=== PATIENT | female | born 1960 | race Asian ===

== ENCOUNTER → 2016-08-06 | Outpatient (CLI) | payer OTHER | LOC: FIMAGING 14:52 | DX: Z12.31 Encounter for screening mammogram for malignant neoplasm of breast (principal) | CPT/HCPCS: G0202 ==

== ENCOUNTER → 2016-10-14 | Outpatient (CLI) | payer OTHER | LOC: FIMAGING 13:00 | PROVIDERS: ATTEND Family Medicine | DX: Z12.39 Encounter for other screening for malignant neoplasm of breast (principal); R92.2 Inconclusive mammogram | CPT/HCPCS: G0206 ==

== ENCOUNTER → 2016-10-20 | Outpatient (CLI) | payer OTHER | LOC: FIMAGING 14:55 | PROVIDERS: ATTEND Nurse Practitioner Family | DX: M25.561 Pain in right knee (principal); M25.461 Effusion, right knee ==

== ENCOUNTER → 2017-05-08 | Outpatient (CLI) | payer OTHER | LOC: FIMAGING 15:17 | PROVIDERS: ATTEND Physician Assistant | DX: Z09 Encounter for follow-up examination after completed treatment for conditions other than malignant neoplasm (principal); R92.8 Other abnormal and inconclusive findings on diagnostic imaging of breast | CPT/HCPCS: G0206 ==

== ENCOUNTER 2017-07-15 12:21 | Emergency (ER) | payer OTHER ==
[2017-07-15] MEDS ORDERED: NS 1,000 ML IV ONE (12:27)
--- NOTE | 2017-07-15 12:28 | EDPHY ---
H & P Time Seen by Provider: 07/15/17 12:22 HPI/ROS: CHIEF COMPLAINT: Abdominal pain HISTORY OF PRESENT ILLNESS: Sudden onset of abdominal pain [place] was brought in by EMS after having received 100 mcg of IV fentanyl. Radiates around to the back, severe at onset. Moderate now. Not associated with vomiting or diarrhea or weakness or numbness in extremities. REVIEW OF SYSTEMS: Eye: no change in vision ENT: no sore throat Cardiac: no chest pain or syncope Pulmonary: no cough or SOB Abdomen: HPI Musculoskeletal: no back pain Skin: no rash Neuro: no headache Constitutional: no fever : Urinary frequency A comprehensive 10 point review of systems is otherwise negative aside from elements mentioned in the history of present illness. PAST MEDICAL HISTORY: Appendectomy and hysterectomy Social history: Here with her 2 sons General Appearance: conversant, cooperative. A little bit sleepy from the fentanyl. Eyes: No scleral icterus. ENT, Mouth: Normal mucous membranes. Respiratory: Normal respiratory effort, breath sounds equal, lungs are clear to auscultation. Cardiovascular: Regular rate and rhythm. Gastrointestinal: Abdomen is soft and non tender. No hernia and no pulsatile mass. Neurological: Alert, face symmetric, normal motor and sensory in extremities. Skin: Warm and dry, no rashes. Musculoskeletal: No peripheral edema. Psychiatric: Not agitated. Emergency Department course/MDM: UA, CBC and chemistry, noncontrast CT scanning. 1314: 3mm R UVJ stone with Karlie senior. 1340: Results discussed with patient and her sons including additional IV Toradol, will also give 100 mg IV lidocaine. 3 mm very small stone she appears more comfortable but still requiring oxygen from the fentanyl she got by EMS. 1515: feels great, no pain, stable for DC, urine culture pending. 1703: discussed with son at this time; Keflex prescription called in to [facility] at , 10-15 WBC and 1+ bacteria. Smoking Status: Never smoked Constitutional: Initial Vital Signs Temperature (C) 36.4 C 07/15/17 12:21 Heart Rate 82 07/15/17 12:21 Respiratory Rate 16 07/15/17 12:21 Blood Pressure 126/76 H 07/15/17 12:21 O2 Sat (%) 95 07/15/17 12:21 O2 Delivery Mode Room Air O2 (L/minute) 2 Allergies/Adverse Reactions: No Known Allergies Allergy (Unverified 04/06/14 18:18) Home Medications: Medication Instructions Recorded Hydrocodone/Acetaminophen [Vicodin 1 each PO 04/06/14 5-300 mg Tablet] oxyCODONE/APAP 5/325 [Percocet 1 - 2 tab PO Q4H PRN #20 tab 04/06/14 5/325 (RX)] Cephalexin [Keflex] 500 mg PO QID #28 cap 07/15/17 Medical Decision Making - Diagnostics Imaging Results: Imaging Impressions Abdomen/Pelvis CT 07/15/17 12:27 Impression: 1. 3 mm stone at the right ureterovesical junction with moderate obstructive uropathy. 2. Punctate nephrolithiasis. 3. Grade 1 spondylolytic spondylolisthesis of L5 on S1. 4. Cholelithiasis without evidence of cholecystitis. 5. Additional findings as above. Findings discussed with Nir Chao on 07/15/2017 at 1313 hours. Attention: This CT examination is specifically designed to evaluate patients who are clinically suspected of having acute obstructive uropathy. This examination does not use radiographic contrast, and as such, provides only a limited evaluation of the abdomen, pelvis and retroperitoneum. If there is further clinical suspicion for pathological conditions other than obstructive uropathy, a complete CT evaluation of the abdomen and pelvis utilizing intravenous and oral contrast should be considered. Imaging: Discussed imaging studies w/ call center coordinator Radiologist, I viewed and interpreted images myself Differential Diagnosis: Differential considered including but not limited to aortic aneurysm, bowel obstruction, renal colic, UTI - Data Points Laboratory Results: Laboratory Results 07/15/17 12:30 07/15/17 12:30 07/15/17 07/15/17 07/15/17 14:45 12:30 12:30 WBC 10.24 10^3/uL H 10^3/uL (3.80-9.50) RBC 4.40 10^6/uL 10^6/uL (4.18-5.33) Hgb 13.2 g/dL g/dL (12.6-16.3) POC Hgb Hct 39.3 % % (38.0-47.0) POC Hct MCV 89.3 fL fL (81.5-99.8) MCH 30.0 pg pg (27.9-34.1) MCHC 33.6 g/dL g/dL (32.4-36.7) RDW 12.4 % % (11.5-15.2) Plt Count 203 10^3/uL 10^3/uL (150-400) MPV 11.1 fL fL (8.7-11.7) Neut % (Auto) 49.5 % % (39.3-74.2) Lymph % (Auto) 43.3 % % (15.0-45.0) [place] % (Auto) 5.7 % % (4.5-13.0) Eos % (Auto) 0.8 % % (0.6-7.6) Baso % (Auto) 0.4 % % (0.3-1.7) Nucleat RBC Rel Count 0.0 % % (0.0-0.2) Absolute Neuts (auto) 5.08 10^3/uL 10^3/uL (1.70-6.50) Absolute Lymphs (auto) 4.43 10^3/uL H 10^3/uL (1.00-3.00) Absolute Monos (auto) 0.58 10^3/uL 10^3/uL (0.30-0.80) Absolute Eos (auto) 0.08 10^3/uL 10^3/uL (0.03-0.40) Absolute Basos (auto) 0.04 10^3/uL 10^3/uL (0.02-0.10) Absolute Nucleated RBC 0.00 10^3/uL 10^3/uL (0-0.01) Immature Gran % 0.3 % % (0.0-1.1) Immature Gran # 0.03 10^3/uL 10^3/uL (0.00-0.10) POC Sodium Sodium 143 mEq/L mEq/L (135-145) POC Potassium Potassium 3.3 mEq/L L mEq/L (3.5-5.2) POC Chloride Chloride 109 mEq/L mEq/L (97-110) Carbon Dioxide 21 mEq/l L mEq/l (22-31) Anion Gap 13 mEq/L mEq/L (8-16) POC BUN BUN 12 mg/dL mg/dL (7-23) Creatinine 0.8 mg/dL mg/dL (0.6-1.0) POC Creatinine Estimated GFR > 60 Glucose 123 mg/dL H mg/dL (70-100) POC Glucose Calcium 9.2 mg/dL mg/dL (8.5-10.4) Urine Color YELLOW Urine Appearance MODERATELY TURBID Urine pH 6.0 (5.0-7.5) Ur Specific [place] 1.017 (1.002-1.030) Urine Protein 1+ H (NEGATIVE) Urine Ketones TRACE H (NEGATIVE) Urine Blood 2+ H (NEGATIVE) Urine Nitrate POSITIVE H (NEGATIVE) Urine Bilirubin NEGATIVE (NEGATIVE) Urine Urobilinogen NEGATIVE EU EU (0.2-1.0) Ur Leukocyte Esterase 1+ H (NEGATIVE) Urine RBC 50-182 /hpf H /hpf (0-3) Urine WBC 10-15 /hpf H /hpf (0-3) Ur Epithelial Cells TRACE /lpf /lpf (NONE-1+) Urine Bacteria 1+ /hpf H /hpf (NONE SEEN) Hyaline Casts 1-5 /lpf /lpf (0-1) Urine Mucus 2+ /lpf H /lpf (NONE-1+) Urine Glucose NEGATIVE (NEGATIVE) 07/15/17 12:28 WBC RBC Hgb POC Hgb 13.6 gm/dL gm/dL (12.6-16.3) Hct POC Hct 40 % % (38-47) MCV MCH MCHC RDW Plt Count MPV Neut % (Auto) Lymph % (Auto) [place] % (Auto) Eos % (Auto) Baso % (Auto) Nucleat RBC Rel Count Absolute Neuts (auto) Absolute Lymphs (auto) Absolute Monos (auto) Absolute Eos (auto) Absolute Basos (auto) Absolute Nucleated RBC Immature Gran % Immature Gran # POC Sodium 143 mEq/L mEq/L (135-145) Sodium POC Potassium 3.1 mEq/L L mEq/L (3.3-5.0) Potassium POC Chloride 107 mEq/L mEq/L (97-110) Chloride Carbon Dioxide Anion Gap POC BUN 12 mg/dL mg/dL (7-23) BUN Creatinine POC Creatinine 0.9 mg/dL mg/dL (0.6-1.0) Estimated GFR Glucose POC Glucose 127 mg/dL H mg/dL (70-100) Calcium Urine Color Urine Appearance Urine pH Ur Specific [place] Urine Protein Urine Ketones Urine Blood Urine Nitrate Urine Bilirubin Urine Urobilinogen Ur Leukocyte Esterase Urine RBC Urine WBC Ur Epithelial Cells Urine Bacteria Hyaline Casts Urine Mucus Urine Glucose Medications Given: Discontinued Medications Acetaminophen (Tylenol) 1,000 mg PO EDNOW ONE Stop: 07/15/17 13:44 Last Admin: 07/15/17 13:58 Dose: 1,000 mg Sodium Chloride (Ns) 1,000 mls @ 0 mls/hr IV EDNOW ONE; Wide Open PRN Reason: Protocol Stop: 07/15/17 12:28 Last Admin: 07/15/17 12:52 Dose: 1,000 mls Lidocaine HCl 100 mg/ Sodium (Chloride) 110 mls @ 600 mls/hr IV EDNOW ONE Stop: 07/15/17 13:53 Last Admin: 07/15/17 13:57 Dose: 110 mls Ketorolac Tromethamine (Toradol) 15 mg IVP EDNOW ONE Stop: 07/15/17 13:34 Last Admin: 07/15/17 13:35 Dose: 15 mg Point of Care Test Results: 07/15/17 12:28 POC Sodium 143 POC Potassium 3.1 L POC Chloride 107 POC BUN 12 POC Creatinine 0.9 POC Glucose 127 H Departure - Departure Disposition: Home, Routine, Self-Care Clinical Impression: Renal colic on right side Condition: Good Instructions: Renal Colic (ED) Additional Instructions: Call for pending test results in 2 day(s). [phone] Tests pending: urine culture Referrals: Sola Miranda MD [Medical Doctor] - 3-4 days, if not improved Prescriptions: Cephalexin [Keflex] 500 mg PO QID #28 cap
[2017-07-15 12:36] VITALS: TEMP 97.5
[2017-07-15 12:40] LABS: PLATELET COUNT 203 10^3/uL (150-400)
[2017-07-15] MEDS ORDERED: KETOROLAC 15 MG/1 ML SDV IVP ONE (13:33)
[2017-07-15] MEDS ORDERED: KETOROLAC 15 MG/1 ML SDV ONE (13:34)
[2017-07-15] MEDS ORDERED: ACETAMINOPHEN 500 MG TAB PO ONE (13:43)
[2017-07-15] MEDS ORDERED: LIDOCAINE 1% 100 MG in NS 100 ML IV ONE (13:43)
[2017-07-15 14:01] VITALS: RESP 18
[2017-07-15 15:17] VITALS: BP 98/59; PULSE 82; O2SAT 94
== END 2017-07-15 15:27 | disposition home or self-care (01) ==
LOC: EDUNIT#
DX: N23 Unspecified renal colic (principal); E86.9 Volume depletion, unspecified; Z90.49 Acquired absence of other specified parts of digestive tract; Z90.710 Acquired absence of both cervix and uterus
CPT/HCPCS: 82947-QW; 96374; J1885

== ENCOUNTER → 2017-09-01 | Outpatient (CLI) | payer OTHER | LOC: FIMAGING 13:05 | PROVIDERS: ATTEND Physician Assistant | DX: Z12.31 Encounter for screening mammogram for malignant neoplasm of breast (principal) ==

== ENCOUNTER → 2018-09-05 | Outpatient (CLI) | payer OTHER | LOC: FIMAGING 12:21 | PROVIDERS: ATTEND Family Medicine | DX: Z12.31 Encounter for screening mammogram for malignant neoplasm of breast (principal); Z80.3 Family history of malignant neoplasm of breast ==